=== PATIENT | female | born 1960 | race Caucasian/White ===

== ENCOUNTER → 2016-09-10 | Outpatient (CLI) | payer OTHER ==
[~2016-09-10] MED LIST: DEXTROAMPHETAMI10 MG PO; EFFEXOR50 MG PO; LOMOTIL 0.025 M1 TA1 PO; NEXIUM40 MG PO; ZOFRAN ODT4 MG SL
[2016-09-10 09:07] LABS: BASO % 0.4 % (0.0-1.0); EOS # 0.2 10*3/uL (0.0-0.4); HEMATOCRIT 40.1 % (37.0-47.0); HEMOGLOBIN 12.7 g/dl (12.0-16.0); LYMPH # 1.4 10*3/uL (1.3-4.4); MEAN CELL VOLUME 80.8 fl (81.0-99.0); MEAN CORPUSCULAR HGB 25.6 pg (27.0-31.0); MEAN CORPUSCULAR HGB CONC 31.7 g/dl (33.0-37.0); MEAN PLATELET VOLUME 9.1 fl (9.6-12.3); MONO # 0.6 10*3/uL (0.1-1.0); MONO % 7.6 % (3.0-9.0); NEUT # 5.4 10*3/uL (2.3-7.9); NEUT % 71.7 % (47.0-73.0); PLATELET COUNT AUTOMATED 404 10*3/uL (130-400); RED BLOOD COUNT 4.96 10*6/uL (4.10-5.10); RED CELL DISTRI WIDTH 15.5 % (0-14.5); WHITE BLOOD COUNT 7.5 10*3/uL (4.8-10.8)
[2016-09-10 09:27] LABS: ALBUMIN 3.7 gm/dl (3.1-4.5); ALKALINE PHOSPHATASE 109 U/L (45-117); BILIRUBIN, TOTAL 0.3 mg/dl (0.2-1.0); BUN 17 mg/dl (7-24); CARBON DIOXIDE 28 mmol/L (21-32); CHLORIDE 105 mmol/L (98-107); CHOLESTEROL 222 mg/dL (<200); EST GLOM FILT AFRICAN AMERICAN > 60 ml/min; GLUCOSE 95 mg/dL (65-99); HDL CHOLESTEROL 97 mg/dl (40-60); LDL CHOLESTEROL 108 mg/dL (9-159); POTASSIUM 3.9 mmol/L (3.5-5.1); SGOT/AST 22 IU/L (3-35); SGPT/ALT 41 U/L (12-78); SODIUM 141 mmol/L (136-145); TOTAL PROTEIN 7.3 gm/dL (6.4-8.2); TRIGLYCERIDES 83 mg/dl (<150); VLDL CHOLESTEROL 17 mg/dL (6-40)
== END | disposition home or self-care (01) ==
LOC: LAB 08:44
PROVIDERS: Internal Medicine
DX: J45.20 Mild intermittent asthma, uncomplicated (principal); Z79.899 Other long term (current) drug therapy

== ENCOUNTER → 2016-09-16 | Outpatient (CLI) | payer OTHER | END | disposition home or self-care (01) | LOC: LAB 12:13 | DX: R19.7 Diarrhea, unspecified (principal) ==

== ENCOUNTER → 2016-10-03 | Outpatient (CLI) | payer OTHER | END | disposition home or self-care (01) | LOC: MAMMO 09-26 09:00 | DX: Z12.31 Encounter for screening mammogram for malignant neoplasm of breast (principal) ==

== ENCOUNTER → 2017-01-17 | Outpatient (CLI) | payer OTHER | END | disposition home or self-care (01) | LOC: RAD 12:07 | DX: M41.86 Other forms of scoliosis, lumbar region (principal); M51.36 Other intervertebral disc degeneration, lumbar region; M48.061 Spinal stenosis, lumbar region without neurogenic claudication; M41.84 Other forms of scoliosis, thoracic region; M47.892 Other spondylosis, cervical region; M48.02 Spinal stenosis, cervical region; G89.29 Other chronic pain ==

== ENCOUNTER → 2017-05-27 | Outpatient (CLI) | payer OTHER | END | disposition home or self-care (01) | LOC: MRI 05-15 11:00 | DX: M41.86 Other forms of scoliosis, lumbar region (principal) ==

== ENCOUNTER → 2017-12-02 | Outpatient (CLI) | payer OTHER | END | disposition home or self-care (01) | LOC: RAD 13:00 | DX: M41.34 Thoracogenic scoliosis, thoracic region (principal); M41.86 Other forms of scoliosis, lumbar region; M48.062 Spinal stenosis, lumbar region with neurogenic claudication ==

== ENCOUNTER → 2018-01-11 | Outpatient (CLI) | payer OTHER ==
--- NOTE | ~2018-01-11 | EKG ---
[place], [place] ELECTROCARDIOGRAM REPORT NAME: BRIDGETT AGUILERA UNIT #: [id number] ROOM: DOCTOR: EPIPHANY DRAFT REPORT BIRTHDATE: [birth year] [facility] Test Date: 2018-01-11 Test Time: 12:18:35 Pat Name: BRIDGETT AGUILERA Department: Room: Gender: F Natural Sciences Professor: : 1960 Requested By: THOMAS YA Order Number: [id number] Reading MD: Kevin Bass MD Measurements Intervals [place] Rate: 82 P: 27 AL: 137 QRS: 11 QRSD: 77 T: 7 QT: 353 QTc: 413 Interpretive Statements Sinus rhythm Electronically Signed On 01-12-2018 11:10:38 PST by Kevin Bass MD CM:EKGRPT:ELECTROCARDIOGRAM REPORT [id number] THOMAS CASTRO DRAFT REPORT THOMAS YA
[2018-01-11 12:48] LABS: ALBUMIN 3.6 gm/dl (3.1-4.5)
== END | disposition home or self-care (01) ==
LOC: LAB 11:03 → RAD 11:30
PROVIDERS: Neurological Surgery
DX: Z13.820 Encounter for screening for osteoporosis (principal); Z13.228 Encounter for screening for other metabolic disorders; Z01.818 Encounter for other preprocedural examination; Z13.0 Encounter for screening for diseases of the blood and blood-forming organs and certain disorders involving the immune mechanism; Z13.29 Encounter for screening for other suspected endocrine disorder; M41.9 Scoliosis, unspecified; M48.062 Spinal stenosis, lumbar region with neurogenic claudication; M99.83 Other biomechanical lesions of lumbar region; Z90.710 Acquired absence of both cervix and uterus; Z78.0 Asymptomatic menopausal state

== ENCOUNTER → 2018-03-01 | Outpatient (CLI) | payer OTHER ==
[2018-03-01 14:34] LABS: BASO # 0.1 10*3/uL (0.0-0.1); BASO % 0.6 % (0.0-1.0); EOS # 0.2 10*3/uL (0.0-0.4); EOS % 2.9 % (1.0-4.0); HEMATOCRIT 42.5 % (37.0-47.0); HEMOGLOBIN 13.1 g/dl (12.0-16.0); LYMPH # 1.8 10*3/uL (1.3-4.4); LYMPH % 21.6 % (27.0-41.0); MEAN CELL VOLUME 82.7 fl (81.0-99.0); MEAN CORPUSCULAR HGB 25.5 pg (27.0-31.0); MEAN CORPUSCULAR HGB CONC 30.8 g/dl (33.0-37.0); MEAN PLATELET VOLUME 9.5 fl (9.6-12.3); MONO # 0.5 10*3/uL (0.1-1.0); MONO % 5.9 % (3.0-9.0); NEUT # 5.8 10*3/uL (2.3-7.9); NEUT % 68.6 % (47.0-73.0); PLATELET COUNT AUTOMATED 412 10*3/uL (130-400); RED BLOOD COUNT 5.14 10*6/uL (4.10-5.10); RED CELL DISTRI WIDTH 14.1 % (0-14.5); WHITE BLOOD COUNT 8.4 10*3/uL (4.8-10.8)
[2018-03-01 14:57] LABS: ALBUMIN 4.1 gm/dl (3.1-4.5); ALKALINE PHOSPHATASE 118 U/L (45-117); BUN 17 mg/dl (7-24); CHLORIDE 105 mmol/L (98-107); CREATININE 0.82 mg/dL (0.55-1.02); POTASSIUM 3.6 mmol/L (3.5-5.1); SGOT/AST 22 IU/L (3-35); SGPT/ALT 43 U/L (12-78); SODIUM 141 mmol/L (136-145); TOTAL PROTEIN 7.7 gm/dL (6.4-8.2)
[2018-03-01 15:03] LABS: ACT PARTIAL THROMBO TIME 24.8 SECONDS (20.8-31.5); INTERNATIONAL NORM RATIO 0.9 (2.0-3.5)
[2018-03-01 16:06] LABS: BILIRUBIN NEGATIVE (NEGATIVE); BLOOD NEGATIVE (NEGATIVE); CLARITY CLEAR (CLEAR); COLOR YELLOW (YELLOW); GLUCOSE NEGATIVE (NEGATIVE); KETONE NEGATIVE (NEGATIVE); LEUKO ESTERASE NEGATIVE (NEGATIVE); NITRITE NEGATIVE (NEGATIVE); SPECIFIC GRAVITY <= 1.005 (1.005-1.030); UROBILINOGEN 0.2 E.U./dl (0.2-1.0)
[2018-03-01 16:17] LABS: BACTERIA 1+; RBC 0-2 rbc/hpf (0-2)
== END | disposition home or self-care (01) ==
LOC: LAB 13:29
PROVIDERS: Neurological Surgery
DX: Z01.818 Encounter for other preprocedural examination (principal); Z13.29 Encounter for screening for other suspected endocrine disorder; Z13.21 Encounter for screening for nutritional disorder; Z13.228 Encounter for screening for other metabolic disorders; M48.062 Spinal stenosis, lumbar region with neurogenic claudication; M99.83 Other biomechanical lesions of lumbar region; M41.86 Other forms of scoliosis, lumbar region

== ENCOUNTER → 2018-04-22 | Outpatient (CLI) | payer OTHER ==
[~2018-04-22] MED LIST changes: +ADDERALL XR10 MG PO; +ATIVAN1 MG PO; +EFFEXOR XR75 M1 PO; -EFFEXOR50 MG PO; +HYDROCODONE-AC1 EAC1 PO; +MONTELUKAST SOD10 MG PO; +ZOFRAN4 MG PO
== END | disposition home or self-care (01) ==
LOC: RAD 13:25
DX: M43.26 Fusion of spine, lumbar region (principal); Z98.1 Arthrodesis status

== ENCOUNTER 2018-06-13 15:20 | Emergency (ER) | payer OTHER ==
[~2018-06-13] VITALS: Ht 154.9 cm; Wt 69.9 kg
[~2018-06-13 15:20] MED LIST changes: -ADDERALL XR10 MG PO; -ATIVAN1 MG PO; -HYDROCODONE-AC1 EAC1 PO; -MONTELUKAST SOD10 MG PO; -ZOFRAN4 MG PO
[2018-06-13 16:19] LABS: BASO % 0.5 % (0.0-1.0); EOS % 0.7 % (1.0-4.0); HEMOGLOBIN 11.8 g/dl (12.0-16.0); LYMPH # 0.7 10*3/uL (1.3-4.4); LYMPH % 15.5 % (27.0-41.0); MEAN CELL VOLUME 81.8 fl (81.0-99.0); MEAN CORPUSCULAR HGB 26.8 pg (27.0-31.0); MEAN CORPUSCULAR HGB CONC 32.8 g/dl (33.0-37.0); MEAN PLATELET VOLUME 9.1 fl (9.6-12.3); MONO # 0.2 10*3/uL (0.1-1.0); MONO % 5.1 % (3.0-9.0); NEUT # 3.4 10*3/uL (2.3-7.9); NEUT % 77.7 % (47.0-73.0); PLATELET COUNT AUTOMATED 226 10*3/uL (130-400); RED CELL DISTRI WIDTH 15.4 % (0-14.5); WHITE BLOOD COUNT 4.3 10*3/uL (4.8-10.8)
[2018-06-13 16:30] LABS: BILIRUBIN NEGATIVE (NEGATIVE); BLOOD NEGATIVE (NEGATIVE); CLARITY CLEAR (CLEAR); COLOR YELLOW (YELLOW); GLUCOSE NEGATIVE (NEGATIVE); KETONE NEGATIVE (NEGATIVE); LEUKO ESTERASE NEGATIVE (NEGATIVE); NITRITE NEGATIVE (NEGATIVE); SPECIFIC GRAVITY <= 1.005 (1.005-1.030)
[2018-06-13 16:33] LABS: ALBUMIN 3.2 gm/dl (3.1-4.5); ALKALINE PHOSPHATASE 343 U/L (45-117); BUN 11 mg/dl (7-24); CHLORIDE 104 mmol/L (98-107); LIPASE 70 U/L (73-393); POTASSIUM 3.4 mmol/L (3.5-5.1); SGOT/AST 293 IU/L (3-35); SGPT/ALT 324 U/L (12-78); SODIUM 138 mmol/L (136-145); TOTAL PROTEIN 7.1 gm/dL (6.4-8.2)
[2018-06-13 16:37] LABS: BACTERIA 1+; MUCOUS 2+
[2018-06-13] MEDS ORDERED: ZOFRAN4 MG PO (17:53)
[2018-06-15 07:09] LABS: HEPATITIS B SURFACE AG Negative (Negative); HEPATITIS C VIRUS ANTIBODY 0.1 s/co (0.0-0.9)
== END 2018-06-13 17:54 | disposition home or self-care (01) ==
LOC: ED 15:20
PROVIDERS: Physician Assistant
DX: B17.9 Acute viral hepatitis, unspecified (principal); R05 Cough; R42 Dizziness and giddiness; Z88.2 Allergy status to sulfonamides; Z88.6 Allergy status to analgesic agent; Z79.899 Other long term (current) drug therapy; Z90.710 Acquired absence of both cervix and uterus

== ENCOUNTER → 2018-06-22 | Outpatient (CLI) | payer OTHER ==
[~2018-06-22] MED LIST changes: +ADDERALL XR10 MG PO; +ATIVAN1 MG PO; +HYDROCODONE-AC1 EAC1 PO; +MONTELUKAST SOD10 MG PO; +ZOFRAN4 MG PO
== END | disposition home or self-care (01) ==
LOC: MAMMO 16:27
DX: Z12.31 Encounter for screening mammogram for malignant neoplasm of breast (principal)

== ENCOUNTER 2018-07-10 00:16 | Inpatient (IN) | payer OTHER ==
[2018-07-10] VITALS (9 sets, daily range): BP systolic 90–170; BP diastolic 60–92
[~2018-07-10] VITALS: Ht 154.9 cm; Wt 68.6 kg
--- NOTE | ~2018-07-10 | EKG ---
[place], [place] ELECTROCARDIOGRAM REPORT NAME: BRIDGETT AGUILERA UNIT #: [id number] ROOM: [facility] DOCTOR: MATTHEW DRAFT REPORT BIRTHDATE: [address] [facility] Test Date: 2018-07-10 Test Time: 06:49:41 Pat Name: BRIDGETT AGUILERA Department: Room: [facility] Gender: F See Supervisor: : 1960 Requested By: BERNARD CLIFFORD Order Number: [id number] Reading MD: Kiara Saavedra Measurements Intervals [place] Rate: 90 P: 8 LA: 146 QRS: 3 QRSD: 79 T: -17 QT: 367 QTc: 449 Interpretive Statements Sinus rhythm Consider left atrial enlargement Nonspecific T abnormalities, inferior leads Compared to ECG 01/11/2018 12:18:35 T-wave abnormality now present Electronically Signed On 07-14-2018 12:59:35 PDT by Kiara Saavedra CM:EKGRPT:ELECTROCARDIOGRAM REPORT [id number] BERNARD KAUR DRAFT REPORT BERNARD CLIFFORD DO
--- NOTE | ~2018-07-10 | EKG ---
[place], [place] ELECTROCARDIOGRAM REPORT NAME: BRIDGETT AGUILERA UNIT #: [id number] ROOM: [facility] DOCTOR: MATTHEW DRAFT REPORT BIRTHDATE: [birth year] [facility] Test Date: 2018-07-10 Test Time: 03:23:27 Pat Name: BRIDGETT AGUILERA Department: Room: [facility] Gender: F Supervisor Quality Control: Carmen Fontana : 1960 Requested By: BERNARD CLIFFORD Order Number: [id number] Reading MD: Kiara Saavedra Measurements Intervals [place] Rate: 74 P: 62 NV: 147 QRS: 32 QRSD: 91 T: 18 QT: 392 QTc: 435 Interpretive Statements Sinus rhythm Baseline wander in lead(s) V3 Compared to ECG 01/11/2018 12:18:35 No significant changes Electronically Signed On 07-14-2018 12:59:03 PDT by Kiara Saavedra CM:EKGRPT:ELECTROCARDIOGRAM REPORT [id number] BERNARD KAUR DRAFT REPORT BERNARD CLIFFORD DO
--- NOTE | ~2018-07-10 | EKG ---
[place], [place] ELECTROCARDIOGRAM REPORT NAME: BRIDGETT AGUILERA UNIT #: [id number] ROOM: [facility] DOCTOR: MATTHEW DRAFT REPORT BIRTHDATE: [birth year] [facility] Test Date: 2018-07-10 Test Time: 00:19:48 Pat Name: BRIDGETT AGUILERA Department: ER Room: [facility] Gender: F Perinatology Physician: : 1960 Requested By: BERNARD CLIFFORD Order Number: [id number] Reading MD: Kiara Saavedra Measurements Intervals [place] Rate: 78 P: 54 [place]: 144 QRS: 19 QRSD: 87 T: 23 QT: 394 QTc: 449 Interpretive Statements Sinus rhythm Compared to ECG 01/11/2018 12:18:35 No significant changes Electronically Signed On 07-14-2018 12:55:55 PDT by Kiara Saavedra CM:EKGRPT:ELECTROCARDIOGRAM REPORT [id number] BERNARD KAUR DRAFT REPORT BERNARD CLIFFORD DO
[~2018-07-10 00:16] MED LIST changes: -ADDERALL XR10 MG PO; -ATIVAN1 MG PO; -HYDROCODONE-AC1 EAC1 PO; -MONTELUKAST SOD10 MG PO
[2018-07-10] MEDS ORDERED: ATIVAN1 MG PO (00:44)
[2018-07-10 00:50] LABS: BASO # 0.1 10*3/uL (0.0-0.1); BASO % 0.5 % (0.0-1.0); EOS # 0.5 10*3/uL (0.0-0.4); EOS % 4.8 % (1.0-4.0); HEMATOCRIT 36.6 % (37.0-47.0); HEMOGLOBIN 11.8 g/dl (12.0-16.0); LYMPH # 2.5 10*3/uL (1.3-4.4); LYMPH % 24.6 % (27.0-41.0); MEAN CORPUSCULAR HGB 26.1 pg (27.0-31.0); MEAN CORPUSCULAR HGB CONC 32.2 g/dl (33.0-37.0); MONO # 0.7 10*3/uL (0.1-1.0); MONO % 6.7 % (3.0-9.0); NEUT # 6.3 10*3/uL (2.3-7.9); NEUT % 63.1 % (47.0-73.0); PLATELET COUNT AUTOMATED 415 10*3/uL (130-400); RED BLOOD COUNT 4.52 10*6/uL (4.10-5.10); RED CELL DISTRI WIDTH 15.2 % (0-14.5)
[2018-07-10 01:01] LABS: ACT PARTIAL THROMBO TIME 26.8 SECONDS (20.0-32.1); INTERNATIONAL NORM RATIO 0.9 (2.0-3.5)
[2018-07-10 01:06] LABS: LIPASE 74 U/L (73-393)
[2018-07-10 01:07] LABS: ALBUMIN 3.7 gm/dl (3.1-4.5); ALKALINE PHOSPHATASE 120 U/L (45-117); BUN 13 mg/dl (7-24); CHLORIDE 106 mmol/L (98-107); CREATININE 0.78 mg/dL (0.55-1.02); POTASSIUM 3.6 mmol/L (3.5-5.1); SGOT/AST 17 IU/L (3-35); SGPT/ALT 29 U/L (12-78); SODIUM 140 mmol/L (136-145); TOTAL PROTEIN 7.2 gm/dL (6.4-8.2)
[2018-07-10 01:13] LABS: TROPONIN I < 0.015 ng/ml (<0.045)
--- NOTE | 2018-07-10 01:40 | NUR ---
PT REQUESTING ADDITIONAL PAIN MEDICATION.PT STATES THE DEMEROL DID NOT TOUCH HER PAIN.MD NOTIFIED.
--- NOTE | 2018-07-10 04:10 | NUR ---
A 58, admitted to 5E, under the services of RHINA Humphreys DO with a diagnosis of CHEST PAIN. Chief complaint is CHEST PAIN. Patient arrived via stretcher from ER. Monitor applied. Initial assessment completed. Vital signs taken and recorded. RHINA HUMPHREYS DO notified of admission to the unit. Orders received. See assessment for past medical history, medications and allergies. Patient and/or family oriented to 5E. visitation policy reviewed. Clothing/patient valuable form completed. RODNEY MONTGOMERY
[2018-07-10] MEDS ORDERED: MONTELUKAST SOD10 MG PO (04:34)
[2018-07-10] MEDS ORDERED: ADDERALL XR10 MG PO (04:35)
--- NOTE | 2018-07-10 04:37 | NUR ---
MED REC UP TO DATE VIA PATIENT.
--- NOTE | 2018-07-10 04:56 | NUR ---
PATIENT AMBULATED UP TO NURSES STATION C/O BEING IN PAIN RATING IT A 10/10. INFORMED PATIENT THAT TORADOL AND TYLENOL WERE ORDERED FOR PAIN, AND PATIENT IS REFUSING THE ORDERED PAIN MEDICATIONS STATING " THOSE DONT DO ANYTHING FOR ME. I'M NOT REALLY ALLERGIC TO DILAUDID I GOT IT AFTER SURGERY AND IT CAUSED ME TO HAVE A HEADACHE. I AM WILLING TO TRY IT IF IT WILL HELP THIS PAIN." CALL PLACED TO DR. MCKEON AND INFORMATION RELAYED. SEE NEW ORDERS.
[2018-07-10 06:34] LABS: BASO # 0.1 10*3/uL (0.0-0.1); BASO % 0.3 % (0.0-1.0); EOS # 0.4 10*3/uL (0.0-0.4); EOS % 2.5 % (1.0-4.0); HEMATOCRIT 37.9 % (37.0-47.0); HEMOGLOBIN 12.2 g/dl (12.0-16.0); LYMPH # 1.3 10*3/uL (1.3-4.4); LYMPH % 8.6 % (27.0-41.0); MEAN CELL VOLUME 82.4 fl (81.0-99.0); MEAN CORPUSCULAR HGB 26.5 pg (27.0-31.0); MEAN CORPUSCULAR HGB CONC 32.2 g/dl (33.0-37.0); MEAN PLATELET VOLUME 8.9 fl (9.6-12.3); MONO # 0.8 10*3/uL (0.1-1.0); MONO % 5.4 % (3.0-9.0); NEUT # 12.7 10*3/uL (2.3-7.9); NEUT % 82.7 % (47.0-73.0); PLATELET COUNT AUTOMATED 378 10*3/uL (130-400); RED CELL DISTRI WIDTH 15.2 % (0-14.5); WHITE BLOOD COUNT 15.3 10*3/uL (4.8-10.8)
[2018-07-10 06:49] LABS: CHOLESTEROL 219 mg/dL (<200); HDL CHOLESTEROL 87 mg/dl (40-60); LDL CHOLESTEROL 113 mg/dL (9-159); TRIGLYCERIDES 93 mg/dl (<150); VLDL CHOLESTEROL 19 mg/dL (6-40)
--- NOTE | 2018-07-10 06:53 | NUR ---
MESSAGE LEFT CARDIOLOGY REGARDING CONSULT.
--- NOTE | 2018-07-10 15:24 | NUR ---
NORCO 5/325 MG GIVEN FOR C/O ABD PAIN,09/25.
[2018-07-11] VITALS: BP 115/62
--- NOTE | 2018-07-11 07:44 | NUR ---
PT C/O STABBING PAIN IN UPPER ABD AT THIS TIME 11/25; MEDICATED WITH IV TORADOL PER ORDER. WILL MONITOR FOR EFFECTIVENESS.
[2018-07-11 08:00] VITALS: BP 112/72
--- NOTE | 2018-07-11 09:54 | NUR ---
PT GIVEN NORCO AT THIS TIME FOR C/O 10/10 UPPER ABD PAIN. WILL MONITOR FOR EFFECTIVENESS.
[2018-07-11] MEDS ORDERED: HYDROCODONE-AC1 EAC1 PO (10:12)
[2018-07-11] MEDS ORDERED: ZOFRAN4 MG PO (10:12)
--- NOTE | 2018-07-11 11:30 | NUR ---
Discharge instructions reviewed with patient/family. Patient receptive and verbalizes understanding. Follow-up care arranged. Written instructions given to patient/family. PRESCRIPTIONS GIVEN. HEPLOCK DISCONTINUED. PATIENT AMBULATORY OFF FLOOR WITH DAUGHTER. AMERICA SAHU
== END 2018-07-11 11:30 | disposition home or self-care (01) | DRG 444 ==
LOC: ED 00:16 → EDHOLD 03:31 → 5E 03:52
PROVIDERS: Emergency Medicine; Family Medicine; ADMIT Internal Medicine
DX: K80.20 Calculus of gallbladder without cholecystitis without obstruction (principal); J18.9 Pneumonia, unspecified organism; B17.9 Acute viral hepatitis, unspecified; M94.0 Chondrocostal junction syndrome [Tietze]; K21.9 Gastro-esophageal reflux disease without esophagitis; F41.1 Generalized anxiety disorder; F32.9 Major depressive disorder, single episode, unspecified; R10.11 Right upper quadrant pain; D64.9 Anemia, unspecified; E83.41 Hypermagnesemia; E78.5 Hyperlipidemia, unspecified; Z98.1 Arthrodesis status; Z98.891 History of uterine scar from previous surgery; Z82.49 Family history of ischemic heart disease and other diseases of the circulatory system; Z82.3 Family history of stroke; Z90.710 Acquired absence of both cervix and uterus; Z80.9 Family history of malignant neoplasm, unspecified; Z88.2 Allergy status to sulfonamides; Z79.899 Other long term (current) drug therapy

== ENCOUNTER → 2018-09-02 | Outpatient (CLI) | payer OTHER ==
[~2018-09-02] MED LIST changes: +ADDERALL XR10 MG PO; +ATIVAN1 MG PO; +HYDROCODONE-AC1 EAC1 PO; +MONTELUKAST SOD10 MG PO
== END | disposition home or self-care (01) ==
LOC: RAD 12:23
DX: M43.26 Fusion of spine, lumbar region (principal)

== ENCOUNTER → 2019-12-13 | Outpatient (CLI) | payer OTHER | END | disposition home or self-care (01) | LOC: CARD 15:09 | DX: Z51.81 Encounter for therapeutic drug level monitoring (principal); Z79.899 Other long term (current) drug therapy ==

== ENCOUNTER → 2020-08-08 | Outpatient (CLI) | payer OTHER ==
[2020-08-08 10:33] LABS: HEMATOCRIT 40.2 % (37.0-47.0); MEAN CELL VOLUME 78.2 fl (81.0-99.0); MEAN CORPUSCULAR HGB 23.7 pg (27.0-31.0); MEAN CORPUSCULAR HGB CONC 30.3 g/dl (33.0-37.0); MEAN PLATELET VOLUME 9.4 fl (9.6-12.3); RED BLOOD COUNT 5.14 10*6/uL (4.10-5.10); RED CELL DISTRI WIDTH 16.5 % (0-14.5); WHITE BLOOD COUNT 7.9 10*3/uL (4.8-10.8)
[2020-08-08 11:05] LABS: ALBUMIN 3.9 gm/dl (3.1-4.5); ALKALINE PHOSPHATASE 108 U/L (45-117); BUN 17 mg/dl (7-24); CHLORIDE 105 mmol/L (98-107); CHOLESTEROL 246 mg/dL (<200); CREATININE 0.95 mg/dL (0.55-1.02); LDL CHOLESTEROL 125 mg/dL (9-159); POTASSIUM 3.8 mmol/L (3.5-5.1); SGOT/AST 19 IU/L (3-35); SGPT/ALT 31 U/L (12-78); SODIUM 140 mmol/L (136-145); TOTAL PROTEIN 7.7 gm/dL (6.4-8.2); TRIGLYCERIDES 159 mg/dl (<150)
== END | disposition home or self-care (01) ==
LOC: MAMMO 09:30 → LAB 09:44
PROVIDERS: ATTEND Physician Assistant
DX: Z12.31 Encounter for screening mammogram for malignant neoplasm of breast (principal); K21.9 Gastro-esophageal reflux disease without esophagitis; M65.332 Trigger finger, left middle finger; J45.20 Mild intermittent asthma, uncomplicated; N64.89 Other specified disorders of breast

== ENCOUNTER → 2021-04-11 | Day surgery (SDC) | payer OTHER ==
[~2021-04-11] VITALS: Ht 154.9 cm; Wt 68.5 kg
[~2021-04-11] MED LIST changes: +FLONASE ALLERG9.9 ML NAS; +SYMB160 INH
[2021-04-11 10:20] VITALS: BP 119/68
[2021-04-11 12:04] VITALS: BP 131/67
[2021-04-11 12:20] VITALS: BP 133/75
== END | disposition home or self-care (01) ==
LOC: SDC 04-08 13:15
PROVIDERS: ATTEND Orthopaedic Surgery
DX: M65.332 Trigger finger, left middle finger (principal); F32.9 Major depressive disorder, single episode, unspecified; Z98.890 Other specified postprocedural states; F41.9 Anxiety disorder, unspecified; Z88.2 Allergy status to sulfonamides; Z88.5 Allergy status to narcotic agent; Z20.822 Contact with and (suspected) exposure to COVID-19

== ENCOUNTER → 2021-12-30 | Outpatient (CLI) | payer OTHER | END | disposition home or self-care (01) | LOC: RAD 11:15 | PROVIDERS: ATTEND Physician Assistant | DX: J45.909 Unspecified asthma, uncomplicated (principal); M47.814 Spondylosis without myelopathy or radiculopathy, thoracic region; J06.9 Acute upper respiratory infection, unspecified; J32.9 Chronic sinusitis, unspecified; M41.84 Other forms of scoliosis, thoracic region ==

== ENCOUNTER → 2022-01-21 | Outpatient (CLI) | payer OTHER | END | disposition home or self-care (01) | LOC: CT 16:00 | PROVIDERS: ATTEND Specialist | DX: J32.0 Chronic maxillary sinusitis (principal); J32.3 Chronic sphenoidal sinusitis; J34.2 Deviated nasal septum; J34.89 Other specified disorders of nose and nasal sinuses ==

== ENCOUNTER → 2023-08-24 | Outpatient (CLI) | payer OTHER ==
[2023-08-24 16:36] LABS: HEMATOCRIT 37.4 % (37.0-47.0); MEAN CELL VOLUME 78.6 fl (81.0-99.0); MEAN CORPUSCULAR HGB 24.2 pg (27.0-31.0); MEAN CORPUSCULAR HGB CONC 30.7 g/dl (33.0-37.0); MEAN PLATELET VOLUME 8.9 fl (9.6-12.3); RED BLOOD COUNT 4.76 10*6/uL (4.10-5.10); RED CELL DISTRI WIDTH 16.1 % (0-14.5); WHITE BLOOD COUNT 10.1 10*3/uL (4.8-10.8)
[2023-08-24 17:14] LABS: ALKALINE PHOSPHATASE 96 U/L (46-116); BUN 13 mg/dl (9-23); CHLORIDE 106 mmol/L (98-107); CHOLESTEROL 246 mg/dL (<200); LDL CHOLESTEROL 120 mg/dL (9-159); SGPT/ALT 25 U/L (5-49); TOTAL PROTEIN 7.3 gm/dL (6.0-8.0); TRIGLYCERIDES 182 mg/dl (<150)
== END | disposition home or self-care (01) ==
LOC: LAB 16:20
PROVIDERS: ATTEND Physician Assistant
DX: M47.817 Spondylosis without myelopathy or radiculopathy, lumbosacral region (principal); M43.26 Fusion of spine, lumbar region; J45.20 Mild intermittent asthma, uncomplicated; M41.86 Other forms of scoliosis, lumbar region

== ENCOUNTER → 2023-09-25 | Outpatient (CLI) | payer OTHER ==
[~2023-09-25] MED LIST changes: +GADOTERATE MEGLUMINE 7.5 MMOL/15 ML VIAL IV ONE
== END | disposition home or self-care (01) ==
LOC: MRI 01:07
PROVIDERS: ATTEND Physician Assistant
DX: M47.816 Spondylosis without myelopathy or radiculopathy, lumbar region (principal); M41.85 Other forms of scoliosis, thoracolumbar region; Z90.49 Acquired absence of other specified parts of digestive tract; Z90.710 Acquired absence of both cervix and uterus

== ENCOUNTER → 2023-11-19 | Outpatient (CLI) | payer OTHER ==
[~2023-11-19] MED LIST changes: -GADOTERATE MEGLUMINE 7.5 MMOL/15 ML VIAL IV ONE
== END | disposition home or self-care (01) ==
LOC: US 03:34
PROVIDERS: ATTEND Physician Assistant
DX: N85.8 Other specified noninflammatory disorders of uterus (principal); Z90.710 Acquired absence of both cervix and uterus

== ENCOUNTER → 2023-11-26 | Outpatient (CLI) | payer OTHER ==
[~2023-11-26] MED LIST changes: +IOHEXOL 300 MG/ML 100 ML VIAL IV ONE
== END | disposition home or self-care (01) ==
LOC: CT 01:32
PROVIDERS: ATTEND Physician Assistant
DX: K44.9 Diaphragmatic hernia without obstruction or gangrene (principal); K76.0 Fatty (change of) liver, not elsewhere classified; N83.9 Noninflammatory disorder of ovary, fallopian tube and broad ligament, unspecified; N83.209 Unspecified ovarian cyst, unspecified side; J84.10 Pulmonary fibrosis, unspecified; K59.00 Constipation, unspecified; M41.86 Other forms of scoliosis, lumbar region; Z98.890 Other specified postprocedural states

== ENCOUNTER → 2024-09-02 | Outpatient (CLI) | payer OTHER ==
[~2024-09-02] MED LIST changes: -IOHEXOL 300 MG/ML 100 ML VIAL IV ONE
[2024-09-02 12:17] LABS: BASO # 0.1 10*3/uL (0.0-0.1); BASO % 1.1 % (0.0-1.0); EOS # 0.3 10*3/uL (0.0-0.4); EOS % 4.5 % (1.0-4.0); MEAN CELL VOLUME 81.0 fl (81.0-99.0); MEAN CORPUSCULAR HGB 25.1 pg (27.0-31.0); MEAN PLATELET VOLUME 9.7 fl (9.6-12.3); MONO # 0.5 10*3/uL (0.1-1.0); MONO % 7.8 % (3.0-9.0); NEUT # 4.1 10*3/uL (2.3-7.9); NEUT % 64.2 % (47.0-73.0); NUCLEATED RED BLOOD CELL 0.0 % (0.0-0.0); NUCLEATED RED BLOOD CELL 0.0 10*3/uL (0.0-0.0); PLATELET COUNT AUTOMATED 396 10*3/uL (130-400); RED CELL DISTRI WIDTH 16.1 % (0-14.5)
[2024-09-02 12:37] LABS: BUN 20 mg/dl (9-23)
== END | disposition home or self-care (01) ==
LOC: LAB 11:38
PROVIDERS: ATTEND Surgery
DX: K44.9 Diaphragmatic hernia without obstruction or gangrene (principal)